=== PATIENT | female | born 1945 | race Caucasian/White ===

== ENCOUNTER 2017-06-14 09:09 | Day surgery (SDC) | payer MEDICARE, BC ==
[2017-06-14] MEDS ORDERED: ceFAZolin 2 GM in Premix Bag 1 BAG IV ONE (10:18)
[2017-06-14] MEDS ORDERED: Bupivacaine 0.25%/EPINEPHrine 1:200,000 10 ML SDV INJECT ONE (10:18)
[2017-06-14] MEDS ORDERED: Lactated Ringers 1,000 ML IV SCH (10:30)
[2017-06-14] MEDS ORDERED: Bupivacaine 25%/EPINEPHrine/PF 30 ML ONE (12:10)
--- NOTE | 2017-06-14 12:14 | PCM.PREANE ---
Preanesthetic Assessment - Anesthesia/Transfusion/Family Hx Anesthesia History: Prior Anesthesia Without Reaction Other Type of Anesthesia Reaction Comment: Denies any known problem with anesthesia in past Family History of Anesthesia Reaction: No Transfusion History: No Prior Transfusion(s) Intubation History: Unknown - Review of Systems General: No Symptoms Pulmonary: No Symptoms Cardiovascular: No Symptoms Gastrointestinal: No Symptoms Neurological: No Symptoms Other: Reports: None - Physical Assessment NPO Status Date: 06/13/17 NPO Status Time: 19:00 O2 Sat by Pulse Oximetry: 97 Respiratory Rate: 18 Vital Signs: Last Vital Signs Temp 36.1 C 06/14/17 09:35 Pulse 79 06/14/17 09:35 Resp 18 06/14/17 09:35 BP 156/56 H 06/14/17 09:35 Pulse Ox 97 06/14/17 09:35 Height: 1.63 m Weight: 80.739 kg ASA Class: 3 Mental Status: Alert & Oriented x3 Airway Class: Mallampati = 2 Dentition: Reports: Dentures (upper), Partial (lower) Thyro-Mental Finger Breadths: 3 Mouth Opening Finger Breadths: 3 ROM/Head Extension: Limited/Partial Lungs: Normal Respiratory Effort, Decreased Breath Sounds, Crackles Cardiovascular: Regular Rate, Regular Rhythm - Allergies Allergies/Adverse Reactions: Allergies Allergy/AdvReac Type Severity Reaction Status Date / Time codeine Allergy Vomiting Verified 06/12/17 10:30 cortisone Allergy Vomiting Verified 06/12/17 10:30 latex Allergy Blisters Verified 06/12/17 10:30 oxycodone Allergy Vomiting Verified 06/12/17 10:30 propoxyphene HCl Allergy Vomiting Verified 06/12/17 10:30 [From Darvon Compound-65] Paper tape Allergy Blisters Uncoded 06/12/17 10:30 - Blood Blood Available: No - Anesthesia Plan Pre-Op Medication Ordered: None - Acknowledgements Anesthesia Type Planned: MAC (general anesthesia back-up) Pt an Appropriate Candidate for the Planned Anesthesia: Yes Alternatives and Risks of Anesthesia Discussed w Pt/Guardian: Yes Pt/Guardian Understands and Agrees with Anesthesia Plan: Yes PreAnesthesia Questionnaire HEENT History: Reports: Macular Degeneration Other HEENT History: uses reading glasses, has upper denture and lower removable partial denture Cardiovascular History: Reports: High Cholesterol, Hypertension Respiratory History: Reports: COPD Other Respiratory History: 50+ yrs of smoking current use 1-2 pack per day, can' t walk 2 blocks - get tired Genitourinary History: Reports: Urinary Incontinence Musculoskeletal History: Reports: Arthritis Other Musculoskeletal History: Accident with paralysis for period of time when quite young Other Neuro History: Reports history of 'mild' stroke years ago denies any known residual problems Endocrine/Metabolic History: Reports: Obesity/BMI 30+ Other Hematologic History: Very possible I have had a transfusion do not know when or why but believe I did, my mother and I were both followed and checked for AIDS - Past Surgical History Head Surgeries/Procedures: Reports: None HEENT Surgical History: Reports: Tonsillectomy GI Surgical History: Reports: Appendectomy, Cholecystectomy Other GI Surgeries/Procedures: Lap Ignacia Female Surgical History: Reports: Hysterectomy, Salpingo-Oophorectomy Other Female Surgeries/Procedures: Cervical procedures for abnormal cells, complete hysterectomy Musculoskeletal Surgical History: Reports: Knee Replacement Other Musculoskeletal Surgeries/Procedures:: Bilateral total knee replacement - SUBSTANCE USE Smoking Status *Q: Current Every Day Smoker (1 06/11 ppd) Tobacco Use Within Last Twelve Months: Cigarettes Recreational Drug Use History: No - HOME MEDS Home Medications: Home Meds Losartan [Cozaar] 1 tab PO BEDTIME 01/21/15 [History] Naproxen Sodium [Aleve] 1 tab PO DAILY PRN 01/21/15 [History] Aspirin [Adult Low Dose Aspirin EC] 81 mg PO DAILY 06/12/17 [History] Oxybutynin Chloride [Ditropan Xl] 10 mg PO DAILY PRN 06/12/17 [History] - CURRENT (IN HOUSE) MEDS Current Meds: Current Medications Lactated Ringer's (Ringers, Lactated) 1,000 mls @ 125 mls/hr IV ASDIRECTED CURT Discontinued Medications Bupivacaine HCl/Epinephrine Bitart (Marcaine 0.25%/Epinephrine 1:200,000) 30 ml INJECT ONETIME ONE Stop: 06/14/17 10:19 Cefazolin Sodium/Dextrose 2 gm (/ Premix) 50 mls @ 100 mls/hr IV ONETIME ONE Stop: 06/14/17 10:47
[2017-06-14] MEDS ORDERED: Propofol 200 MG/20 ML SDV ONE (12:15)
[2017-06-14] MEDS ORDERED: Midazolam 1 MG/ML 2 ML SDV ONE (12:15)
[2017-06-14] MEDS ORDERED: Lidocaine 2% 5 ML SDV ONE (12:15)
[2017-06-14] MEDS ORDERED: fentaNYL 100 MCG/2 ML SDV ONE (12:15)
[2017-06-14] MEDS ORDERED: ceFAZolin 1 GM Vial ONE (13:02)
--- NOTE | 2017-06-14 13:03 | PCM.HP ---
H&P History of Present Illness - General Date of Service: 06/14/17 Admit Problem/Dx: right thumb mass Source of Information: Patient, Old Records, Provider, RN History Limitations: Reports: No Limitations - History of Present Illness Initial Comments - Free Text/Narative: right thumb mass for years. Growing and painful would like removed. Seen in clinic and ready for excision. H&P completion today as outside of the 30 days. Onset of Symptoms: Reports: Other (years) Location: Reports: Upper Extremity, Right Quality: Reports: Pressure Improves with: Reports: None Worsens with: Reports: None Associated Symptoms: Reports: No Other Symptoms - Related Data Allergies/Adverse Reactions: Allergies Allergy/AdvReac Type Severity Reaction Status Date / Time codeine Allergy Vomiting Verified 06/12/17 10:30 cortisone Allergy Vomiting Verified 06/12/17 10:30 latex Allergy Blisters Verified 06/12/17 10:30 oxycodone Allergy Vomiting Verified 06/12/17 10:30 propoxyphene HCl Allergy Vomiting Verified 06/12/17 10:30 [From Darvon Compound-65] Paper tape Allergy Blisters Uncoded 06/12/17 10:30 Home Medications: Home Meds Losartan [Cozaar] 1 tab PO BEDTIME 01/21/15 [History] Naproxen Sodium [Aleve] 1 tab PO DAILY PRN 01/21/15 [History] Aspirin [Adult Low Dose Aspirin EC] 81 mg PO DAILY 06/12/17 [History] Oxybutynin Chloride [Ditropan Xl] 10 mg PO DAILY PRN 06/12/17 [History] Past Medical History HEENT History: Reports: Macular Degeneration Other HEENT History: uses reading glasses, has upper denture and lower removable partial denture Cardiovascular History: Reports: High Cholesterol, Hypertension Respiratory History: Reports: COPD Other Respiratory History: 50+ yrs of smoking current use 1-2 pack per day, can' t walk 2 blocks - get tired Genitourinary History: Reports: Urinary Incontinence Musculoskeletal History: Reports: Arthritis Other Musculoskeletal History: Accident with paralysis for period of time when quite young Other Neuro History: Reports history of 'mild' stroke years ago denies any known residual problems Endocrine/Metabolic History: Reports: Obesity/BMI 30+ Other Hematologic History: Very possible I have had a transfusion do not know when or why but believe I did, my mother and I were both followed and checked for AIDS - Past Surgical History Head Surgeries/Procedures: Reports: None HEENT Surgical History: Reports: Tonsillectomy GI Surgical History: Reports: Appendectomy, Cholecystectomy Other GI Surgeries/Procedures: Lap Ignacia Female Surgical History: Reports: Hysterectomy, Salpingo-Oophorectomy Other Female Surgeries/Procedures: Cervical procedures for abnormal cells, complete hysterectomy Musculoskeletal Surgical History: Reports: Knee Replacement Other Musculoskeletal Surgeries/Procedures:: Bilateral total knee replacement Social & Family History - Tobacco Use Smoking Status *Q: Current Every Day Smoker (1 /2 ppd) Years of Tobacco use: 52 - Recreational Drug Use Recreational Drug Use: No Drug Use in Last 12 Months: No H&P Review of Systems - Review of Systems: Review Of Systems: See Below General: Reports: No Symptoms HEENT: Reports: No Symptoms Pulmonary: Reports: Wheezing, Cough. Denies: Pleuritic Chest Pain Cardiovascular: Reports: No Symptoms Musculoskeletal: Reports: No Symptoms Skin: Reports: Lumps (right thumb) Psychiatric: Reports: No Symptoms Neurological: Reports: No Symptoms Hematologic/Lymphatic: Reports: No Symptoms Immunologic: Reports: No Symptoms Exam - Exam Exam: See Below - Vital Signs Vital Signs: Last Vital Signs Temp 97.0 F 06/14/17 09:35 Pulse 79 06/14/17 09:35 Resp 18 06/14/17 12:15 BP 156/56 H 06/14/17 09:35 Pulse Ox 97 06/14/17 12:15 Weight: 178 lb - Exam General: Alert, Oriented, Cooperative HEENT: EOMI, Other (tooth loss) Lungs: Clear to Auscultation, Normal Respiratory Effort Cardiovascular: Regular Rate, Regular Rhythm GI/Abdominal Exam: Soft Extremities: Other (right thumb bas mass likely more in skin than subcutaneous layer. 1cm2). No: Arm Pain Skin: Warm, Dry Neuro Extensive - Mental Status: Alert, Oriented x3 Neuro Extensive - Motor, Sensory, Reflexes: CN II-XII Intact Psychiatric: Alert, Normal Affect, Normal Mood *Q Meaningful Use (ADM) - VTE *Q VTE Criteria *Q: VTE Anticoagulation Contraindications: Med/TX Not Indicated/Need - VTE Risk Assess *Q Each Risk Factor Represents 1 Point: Minor Surgery Planned Total Score 1 Point Risk Factors: 1 Each Risk Factor Represents 2 Points: Age 60 - 74 Years Total Score 2 Point Risk Factors: 2 Each Risk Factor Represents 3 Points: None Total Score 3 Point Risk Factors: 0 Each Risk Factor Represents 5 Points: None Total Score 5 Point Risk Factors: 0 Venous Thromboembolism Risk Factor Score *Q: 3 - Stroke *Q Stroke Criteria *Q: Anticoagulation Contraindications Stroke *Q: Med/TX Not Indicated/Need Antithrombotic Contraindications Stroke *Q: Med/TX Not Indicated/Need Thrombolytic/Fibrinolytic Contraindications Stroke *Q: Med/TX Not Indicated/Need Rehabilitation Assessment Contraindication *Q: Med/tx not indicated/need - AMI *Q AMI Criteria *Q: Aspirin Contraindications AMI *Q: Med/TX Not Indicated/Need Thrombolytic/Fibrinolytic Contraindications IV (AMI) *Q: Med/tx not indicated/ need Statin Contraindications AMI *Q: Med/TX Not Indicated/Need - Problem List (1) Finger mass, right SNOMED Code(s): 399371286 ICD Code: R22.31 - LOCALIZED SWELLING, MASS AND LUMP, RIGHT UPPER LIMB Status: Acute Priority: Medium Current Visit: Yes Problem List Initiated/Reviewed/Updated: Yes Orders Last 24hrs: Active Orders 24 hr Category Date Time Status Verify Patient Consent Obtain [RC] ASDIRECTED Care 06/14/17 10:18 Active Nothing Per Oral Diet [DIET] Diet 06/15/17 Breakfast Active Lactated Ringers [Ringers, Lactated] 1,000 ml Med 06/14/17 10:30 Active IV ASDIRECTED Resuscitation Status Routine Resus Stat 06/14/17 10:18 Ordered Medication Orders Lactated Ringer's (Ringers, Lactated) 1,000 mls @ 125 mls/hr IV ASDIRECTED CURT Assessment/Plan Comment:: excision in the or - informed consent obtained.
[2017-06-14 13:58] VITALS: BP 118/59
--- NOTE | 2017-06-14 14:34 | PCM.OPNOTE ---
- General Post-Op/Procedure Note Date of Surgery/Procedure: 06/14/17 Operative Procedure(s): excision of right thumb mass 1cm Pre Op Diagnosis: right thumb mass Post-Op Diagnosis: Same Anesthesia Technique: Local, MAC Primary Surgeon: Azucena Concepcion Mechanical Service Technician: Narcisa Garcia Complications: None Condition: Good Free Text/Narrative:: Intake & Output 06/13/17 06/14/17 06/14/17 23:59 07:59 15:59 Intake Total 1000 Balance 1000
--- NOTE | 2017-06-14 14:54 | PCM48HPAN ---
Post Anesthesia Note - EVALUATION WITHIN 48HRS OF ANESTHETIC Vital Signs in Normal Range: Yes Patient Participated in Evaluation: Yes Respiratory Function Stable: Yes Airway Patent: Yes Cardiovascular Function Stable: Yes Hydration Status Stable: Yes Pain Control Satisfactory: Yes Nausea and Vomiting Control Satisfactory: Yes Mental Status Recovered: Yes
--- NOTE | 2017-06-14 20:33 | OR ---
SURGEON: AZUCENA CONCEPCION MD DATE OF PROCEDURE: 06/14/2017 PREOPERATIVE DIAGNOSIS: Right thumb mass. POSTOPERATIVE DIAGNOSIS: Right thumb mass. PROCEDURE PERFORMED: Excision of right thumb mass 1 cm. PRIMARY SURGEON: Azucena Concepcion MD. HOSTESS HOST: AYSHA Cody. ANESTHESIA: Local MAC. INDICATIONS: Tiffany Ann is a 72-year-old female seen today in evaluation for right thumb mass. It has been there for a long time and it causes pain. She does not recall any trauma to the area; however, differential was discussed with her. I would recommend excision for treatment. Risks were including, but not limited to bleeding, infection, damage to underlying or overlying structures, possible need for future interventions, possible scarring. PROCEDURE IN DETAIL: After informed consent was obtained and placed on the chart, the patient was brought to the operative theater and laid in supine position. After adequate local MAC anesthesia was obtained, the area was prepped and draped and a time- out was completed to confirm side and site. A transverse incision was made over the lesion itself at approximately the A1 dominga and dissection was carried circumferentially around it, where it was easily removed en bloc and popped out of subcutaneous tissues. It appears to be cyst and less likely a giant cell tumor. This has been more cyst like. It is with a intern retail color. It is very well circumscribed. Once adequately removed, full incision was irrigated and closed using 5-0 nylon sutures in a horizontal mattress fashion. The patient tolerated this well. All counts and needles were correct at the end of the case. The wound was dressed with Xeroform, fluffs, and Kerlix gauze dressing and a 2- inch Alfredito wrap. FOLLOWUP INSTRUCTIONS: The patient will see us in 10 to 14 days or sooner if any problems, questions, or concerns. HEGGTHE / MODL /[id number]
== END 2017-06-14 14:00 | disposition home or self-care (01) ==
LOC: MW.SDS 09:09
PROVIDERS: ATTEND Plastic Surgery
DX: D23.61 Other benign neoplasm of skin of right upper limb, including shoulder (principal); I10 Essential (primary) hypertension; E78.5 Hyperlipidemia, unspecified; J44.9 Chronic obstructive pulmonary disease, unspecified; F17.200 Nicotine dependence, unspecified, uncomplicated; M19.90 Unspecified osteoarthritis, unspecified site; E66.9 Obesity, unspecified; Z90.49 Acquired absence of other specified parts of digestive tract; Z88.5 Allergy status to narcotic agent; Z88.8 Allergy status to other drugs, medicaments and biological substances; Z91.040 Latex allergy status; Z91.048 Other nonmedicinal substance allergy status; Z79.899 Other long term (current) drug therapy; Z79.82 Long term (current) use of aspirin; Z68.30 Body mass index [BMI] 30.0-30.9, adult; Z90.89 Acquired absence of other organs; Z90.710 Acquired absence of both cervix and uterus; Z90.722 Acquired absence of ovaries, bilateral; Z96.653 Presence of artificial knee joint, bilateral
CPT/HCPCS: 11421; J0690; J2250; J3010; 00400; 88305; J2704